=== PATIENT | female | born 1990 | race Caucasian/White ===

== ENCOUNTER 2018-04-13 13:50 | Emergency (ER) | payer OTHER ==
[~2018-04-13] VITALS: Ht 170.2 cm; Wt 72.6 kg
[~2018-04-13 13:50] MED LIST: AMOXICILLIN 50500 MG PO; CIPRO500 MG PO; FERRO-TIME325 MG PO; GENTAMICIN SU3 MG/ML OPHTHALMIC; IBUPROFEN 400400 M1 PO; IBUPROFEN 600600 M1 PO; KEFLEX500 MG PO; LIDOCAINE VISC100 ML SWISH&SPIT; ULTRAM 50MG TAB50 MG PO
[2018-04-13] MEDS ORDERED: BACTRIM DS TAB1 EACH PO (14:25)
[2018-04-13] MEDS ORDERED: KEFLEX500 M1 PO (14:25)
[2018-04-13 14:43] VITALS: BP 105/64
== END 2018-04-13 14:40 | disposition home or self-care (01) ==
LOC: M.ERS 13:50
DX: L03.114 Cellulitis of left upper limb (principal); F17.210 Nicotine dependence, cigarettes, uncomplicated

== ENCOUNTER 2018-06-28 07:58 | Emergency (ER) | payer OTHER ==
[~2018-06-28] VITALS: Ht 172.7 cm; Wt 72.6 kg
[~2018-06-28 07:58] MED LIST changes: +BACTRIM DS TAB1 EACH PO; +KEFLEX500 M1 PO
[2018-06-28 08:07] VITALS: BP 104/60
[2018-06-28] MEDS ORDERED: BACTRIM DS TAB1 EACH PO (08:11)
[2018-06-28] MEDS ORDERED: PREDNISONE 20 M20 M1 PO (08:11)
== END 2018-06-28 08:22 | disposition home or self-care (01) ==
LOC: M.ERS 07:58
DX: S40.862A Insect bite (nonvenomous) of left upper arm, initial encounter (principal); F17.210 Nicotine dependence, cigarettes, uncomplicated; W57.XXXA Bitten or stung by nonvenomous insect and other nonvenomous arthropods, initial encounter; Y93.89 Activity, other specified; Y92.89 Other specified places as the place of occurrence of the external cause; Y99.8 Other external cause status

== ENCOUNTER 2019-08-14 10:38 | Emergency (ER) | payer OTHER ==
[~2019-08-14] VITALS: Ht 172.7 cm; Wt 72.6 kg
[~2019-08-14 10:38] MED LIST changes: +PREDNISONE 20 M20 M1 PO
[2019-08-14 11:07] LABS: ABSOLUTE BASOPHILS 0.1 thou/uL (0.0-0.2); ABSOLUTE EOSINOPHILS 0.5 thou/uL (0.0-0.7); ABSOLUTE LYMPHOCYTES 1.3 thou/uL (0.8-5.3); ABSOLUTE MONOCYTES 0.4 thou/uL (0.0-1.2); ABSOLUTE NEUTROPHILS 5.6 thou/uL (1.6-8.1); BASOPHILS 0.9 %; EOSINOPHILS 6.7 %; HEMATOCRIT 36.7 % (37.0-47.0); HEMOGLOBIN 12.5 gm/dL (12.0-15.0); LYMPHOCYTES 16.9 %; MCH 29.3 pg (26.0-34.0); MCHC 34.1 g/dL (28.0-37.0); MCV 85.9 fL (80.0-100.0); MONOCYTES 5.5 %; MPV 9.7 fl. (7.2-11.1); NUCLEATED RBCS 0 /100WBC; PLATELET COUNT* 256 thou/uL (150-400); RBC 4.27 mil/uL (4.20-5.00); WBC 7.9 thou/uL (4.0-11.0)
[2019-08-14] MEDS ORDERED: ONDANSETRON HCL4 M2 PO (11:14)
[2019-08-14 11:17] LABS: URINE BILIRUBIN NEGATIVE (Negative); URINE BLOOD NEGATIVE (Negative); URINE CLARITY CLEAR; URINE COLOR YELLOW; URINE GLUCOSE-RANDOM NEGATIVE (Negative); URINE KETONES NEGATIVE (Negative); URINE LEUKOCYTES-REFLEX NEGATIVE (Negative); URINE NITRITE-REFLEX NEGATIVE (Negative); URINE PROTEIN NEGATIVE (Negative); URINE SPECIFIC GRAVITY >= 1.030 (1.005-1.030); URINE UROBILINOGEN 0.2 E.U./dl (0.2-1.0)
[2019-08-14 11:18] LABS: CALCIUM 8.3 mg/dL (8.5-10.1); CREATININE 0.7 mg/dL (0.6-1.3); POTASSIUM 3.7 mmol/L (3.5-5.1)
[2019-08-14 11:31] LABS: ALBUMIN 3.6 g/dL (3.4-5.0); TOTAL BILIRUBIN 0.2 mg/dL (<0.1-1.0); TOTAL PROTEIN 7.5 g/dL (6.4-8.2)
[2019-08-14 12:07] VITALS: BP 114/55
== END 2019-08-14 12:10 | disposition home or self-care (01) ==
LOC: M.ERS 10:38
PROVIDERS: Nurse Practitioner Family
DX: R11.2 Nausea with vomiting, unspecified (principal); F17.210 Nicotine dependence, cigarettes, uncomplicated

== ENCOUNTER 2019-12-26 02:51 | Emergency (ER) | payer OTHER ==
[~2019-12-26 02:51] MED LIST changes: +ONDANSETRON HCL4 M2 PO
== END 2019-12-26 03:00 | disposition left against medical advice (07) ==
LOC: M.ERS 02:51
DX: Z53.21 Procedure and treatment not carried out due to patient leaving prior to being seen by health care provider (principal)

== ENCOUNTER 2020-05-07 10:43 | Emergency (ER) | payer OTHER ==
[~2020-05-07] VITALS: Ht 170.2 cm; Wt 74.4 kg
[2020-05-07] MEDS ORDERED: PROAIR HFA8.5 GM INH (10:58)
[2020-05-07 11:45] LABS: INFLUENZA A ANTIGEN Negative (Negative); INFLUENZA B ANTIGEN Negative (Negative)
[2020-05-07] MEDS ORDERED: PREDNISONE 20 M20 M1 PO (12:20)
[2020-05-07] MEDS ORDERED: ZPAK PO (12:20)
[2020-05-07] MEDS ORDERED: VENTOLIN HFA 1818 GM INH (12:43)
[2020-05-07 12:58] VITALS: BP 95/57
== END 2020-05-07 12:59 | disposition home or self-care (01) ==
LOC: M.ERS 10:43
PROVIDERS: Family Medicine
DX: J40 Bronchitis, not specified as acute or chronic (principal); Z20.828 Contact with and (suspected) exposure to other viral communicable diseases; J44.9 Chronic obstructive pulmonary disease, unspecified; F17.210 Nicotine dependence, cigarettes, uncomplicated

== ENCOUNTER 2020-10-17 20:45 | Emergency (ER) | payer OTHER ==
[~2020-10-17] VITALS: Ht 170.2 cm; Wt 72.6 kg
[~2020-10-17 20:45] MED LIST changes: +PROAIR HFA8.5 GM INH; +VENTOLIN HFA 1818 GM INH; +ZPAK PO
[2020-10-17 21:12] LABS: URINE BILIRUBIN NEGATIVE (Negative); URINE BLOOD NEGATIVE (Negative); URINE CLARITY CLEAR; URINE COLOR YELLOW; URINE GLUCOSE-RANDOM NEGATIVE (Negative); URINE KETONES NEGATIVE (Negative); URINE LEUKOCYTES-REFLEX 1+ (Negative); URINE NITRITE-REFLEX NEGATIVE (Negative); URINE PROTEIN NEGATIVE (Negative); URINE UROBILINOGEN 0.2 E.U./dl (0.2-1.0)
[2020-10-17 21:17] LABS: BACTERIA-REFLEX 1-9 Few /HPF (None Seen); MUCUS None Seen strn/LPF (None Seen); SQUAMOUS >10 Many /LPF (0-3); URINE WBC-REFLEX 6-15 Few /HPF (0-5)
[2020-10-17 21:18] LABS: CRYSTALS None Seen /LPF (None Seen); WBC CLUMPS Few (None Seen)
[2020-10-17 21:19] LABS: CASTS None Seen /LPF (None Seen); URINE RBC None Seen /HPF (0-2)
[2020-10-17 21:45] LABS: ABSOLUTE BASOPHILS 0.1 thou/uL (0.0-0.2); ABSOLUTE EOSINOPHILS 0.5 thou/uL (0.0-0.7); ABSOLUTE LYMPHOCYTES 1.8 thou/uL (0.8-5.3); ABSOLUTE MONOCYTES 0.6 thou/uL (0.0-1.2); ABSOLUTE NEUTROPHILS 6.4 thou/uL (1.6-8.1); BASOPHILS 0.6 %; EOSINOPHILS 5.2 %; HEMATOCRIT 38.2 % (37.0-47.0); HEMOGLOBIN 12.7 gm/dL (12.0-15.0); LYMPHOCYTES 18.9 %; MCH 28.9 pg (26.0-34.0); MCHC 33.2 g/dL (28.0-37.0); MCV 87.3 fL (80.0-100.0); MONOCYTES 6.6 %; MPV 9.9 fl. (7.2-11.1); NUCLEATED RBCS 0 /100WBC; PLATELET COUNT* 216 thou/uL (150-400); POLYS 68.7 %; RBC 4.38 mil/uL (4.20-5.00); RDW-CV 13.3 % (10.5-14.5); WBC 9.3 thou/uL (4.0-11.0)
[2020-10-17 21:50] LABS: CALCIUM 8.2 mg/dL (8.5-10.1); CREATININE 0.9 mg/dL (0.6-1.3); POTASSIUM 3.9 mmol/L (3.5-5.1)
[2020-10-17 21:54] LABS: ALBUMIN 3.6 g/dL (3.4-5.0); TOTAL BILIRUBIN 0.3 mg/dL (<0.1-1.0); TOTAL PROTEIN 7.5 g/dL (6.4-8.2)
[2020-10-17] MEDS ORDERED: ZOFRAN ODT4 MG PO (22:14)
[2020-10-17] MEDS ORDERED: BENTYL 10 MG CA10 M1 PO (22:14)
[2020-10-17] MEDS ORDERED: IBUPROFEN 800800 M1 PO (22:14)
[2020-10-17] MEDS ORDERED: CEPHALEXIN500 MG PO (22:15)
[2020-10-18 01:23] VITALS: BP 104/65
== END 2020-10-18 01:23 | disposition home or self-care (01) ==
LOC: M.ERS 20:45
PROVIDERS: Nurse Practitioner Family
DX: N39.0 Urinary tract infection, site not specified (principal); R10.11 Right upper quadrant pain; J44.9 Chronic obstructive pulmonary disease, unspecified; F31.9 Bipolar disorder, unspecified; F17.210 Nicotine dependence, cigarettes, uncomplicated

== ENCOUNTER 2020-12-04 05:45 | Emergency (ER) | payer OTHER ==
[~2020-12-04] VITALS: Ht 170.2 cm; Wt 73.5 kg
[~2020-12-04 05:45] MED LIST changes: +BENTYL 10 MG CA10 M1 PO; +CEPHALEXIN500 MG PO; +IBUPROFEN 800800 M1 PO; +ZOFRAN ODT4 MG PO
[2020-12-04 06:17] LABS: ABSOLUTE BASOPHILS 0.1 thou/uL (0.0-0.2); ABSOLUTE EOSINOPHILS 0.5 thou/uL (0.0-0.7); ABSOLUTE LYMPHOCYTES 2.3 thou/uL (0.8-5.3); ABSOLUTE MONOCYTES 0.7 thou/uL (0.0-1.2); ABSOLUTE NEUTROPHILS 6.4 thou/uL (1.6-8.1); BASOPHILS 0.7 %; EOSINOPHILS 5.5 %; HEMATOCRIT 39.3 % (37.0-47.0); HEMOGLOBIN 13.1 gm/dL (12.0-15.0); LYMPHOCYTES 22.5 %; MCH 28.8 pg (26.0-34.0); MCHC 33.4 g/dL (28.0-37.0); MCV 86.2 fL (80.0-100.0); MONOCYTES 7.4 %; MPV 8.8 fl. (7.2-11.1); NUCLEATED RBCS 0 /100WBC; PLATELET COUNT* 292 thou/uL (150-400); POLYS 63.9 %; RBC 4.55 mil/uL (4.20-5.00); RDW-CV 12.9 % (10.5-14.5)
[2020-12-04 06:26] LABS: CALCIUM 8.7 mg/dL (8.5-10.1); CREATININE 0.7 mg/dL (0.6-1.3); POTASSIUM 3.6 mmol/L (3.5-5.1)
[2020-12-04 06:30] LABS: TOTAL BILIRUBIN 0.2 mg/dL (<0.1-1.0); TOTAL PROTEIN 7.9 g/dL (6.4-8.2)
[2020-12-04 06:43] LABS: AMP/METHAMP POSITIVE (Negative); BARBITURATES Negative (Negative); BENZODIAZEPINES Negative (Negative); COCAINE Negative (Negative); METHADONE Negative (Negative); OPIATES Negative (Negative); PCP Negative (Negative); THC POSITIVE (Negative)
[2020-12-04 06:53] LABS: URINE BILIRUBIN NEGATIVE (Negative); URINE BLOOD NEGATIVE (Negative); URINE CLARITY CLEAR; URINE COLOR YELLOW; URINE GLUCOSE-RANDOM NEGATIVE (Negative); URINE KETONES NEGATIVE (Negative); URINE LEUKOCYTES-REFLEX NEGATIVE (Negative); URINE NITRITE-REFLEX POSITIVE (Negative); URINE PROTEIN NEGATIVE (Negative); URINE SPECIFIC GRAVITY >= 1.030 (1.005-1.030); URINE UROBILINOGEN 0.2 E.U./dl (0.2-1.0)
[2020-12-04 06:57] LABS: CASTS None Seen /LPF (None Seen); CRYSTALS None Seen /LPF (None Seen); SQUAMOUS 0-3 Few /LPF (0-3); URINE RBC 0-2 Rare /HPF (0-2); URINE WBC-REFLEX 6-15 Few /HPF (0-5)
[2020-12-04] MEDS ORDERED: FLAGYL500 M1 PO (09:06)
[2020-12-04] MEDS ORDERED: AUGMENTIN 875-1 EACH PO (09:06)
[2020-12-04] MEDS ORDERED: COLACE 100 MG100 MG PO (09:06)
[2020-12-04 09:46] VITALS: BP 110/68
== END 2020-12-04 09:47 | disposition home or self-care (01) ==
LOC: M.ERS 05:45
PROVIDERS: Personal Emergency Response Attendant
DX: K80.80 Other cholelithiasis without obstruction (principal); Z11.3 Encounter for screening for infections with a predominantly sexual mode of transmission; F17.210 Nicotine dependence, cigarettes, uncomplicated; J44.9 Chronic obstructive pulmonary disease, unspecified; R51.9 Headache, unspecified

== ENCOUNTER 2021-03-10 09:27 | Emergency (ER) | payer OTHER ==
[~2021-03-10] VITALS: Ht 170.2 cm; Wt 72.1 kg
[~2021-03-10 09:27] MED LIST changes: +AUGMENTIN 875-1 EACH PO; +COLACE 100 MG100 MG PO; +FLAGYL500 M1 PO
[2021-03-10 09:35] VITALS: BP 103/57
[2021-03-10] MEDS ORDERED: HYDROCODON-ACE1 EAC7 PO (09:47)
[2021-03-10] MEDS ORDERED: FLEXERIL PO (09:47)
[2021-03-11] MEDS ORDERED: IBUPROFEN 800800 M1 PO (21:47)
[2021-03-11] MEDS ORDERED: MEDROLDOSEPACK PO (21:47)
== END 2021-03-10 09:48 | disposition home or self-care (01) ==
LOC: M.ERS 09:27
DX: S46.912A Strain of unspecified muscle, fascia and tendon at shoulder and upper arm level, left arm, initial encounter (principal); J44.9 Chronic obstructive pulmonary disease, unspecified; F31.9 Bipolar disorder, unspecified; F17.210 Nicotine dependence, cigarettes, uncomplicated; X58.XXXA Exposure to other specified factors, initial encounter; Y93.89 Activity, other specified; Y92.89 Other specified places as the place of occurrence of the external cause; Y99.8 Other external cause status

== ENCOUNTER 2021-03-11 20:35 | Emergency (ER) | payer OTHER ==
[~2021-03-11] VITALS: Ht 172.7 cm; Wt 70.3 kg
[~2021-03-11 20:35] MED LIST changes: +FLEXERIL PO; +HYDROCODON-ACE1 EAC7 PO
[2021-03-11 20:46] VITALS: BP 123/81
[2021-03-11] MEDS ORDERED: MEDROLDOSEPACK PO (21:47)
[2021-03-11] MEDS ORDERED: IBUPROFEN 800800 M1 PO (21:47)
== END 2021-03-11 21:56 | disposition home or self-care (01) ==
LOC: M.ERS 20:35
DX: M25.512 Pain in left shoulder (principal); J44.9 Chronic obstructive pulmonary disease, unspecified; F31.9 Bipolar disorder, unspecified; F17.210 Nicotine dependence, cigarettes, uncomplicated; Z79.899 Other long term (current) drug therapy

== ENCOUNTER 2021-04-06 09:17 | Emergency (ER) | payer OTHER ==
[~2021-04-06] VITALS: Ht 170.2 cm; Wt 71.7 kg
[~2021-04-06 09:17] MED LIST changes: +MEDROLDOSEPACK PO
[2021-04-06 10:31] VITALS: BP 115/70
== END 2021-04-06 10:33 | disposition home or self-care (01) ==
LOC: M.ERS 09:17
DX: U07.1 COVID-19 (principal); J44.9 Chronic obstructive pulmonary disease, unspecified; F17.210 Nicotine dependence, cigarettes, uncomplicated; R21 Rash and other nonspecific skin eruption

== ENCOUNTER 2021-04-25 11:07 | Emergency (ER) | payer OTHER ==
[~2021-04-25] VITALS: Ht 170.2 cm; Wt 68.0 kg
[2021-04-25] MEDS ORDERED: DOXYCYCLINE 10100 MG PO (14:33)
[2021-04-25] MEDS ORDERED: VENTOLIN HFA 1818 GM INH (14:33)
[2021-04-25 14:43] VITALS: BP 123/79
== END 2021-04-25 14:44 | disposition home or self-care (01) ==
LOC: M.ERS 11:07
DX: J06.9 Acute upper respiratory infection, unspecified (principal); Z20.822 Contact with and (suspected) exposure to COVID-19; R21 Rash and other nonspecific skin eruption; J44.9 Chronic obstructive pulmonary disease, unspecified; F31.9 Bipolar disorder, unspecified; H92.02 Otalgia, left ear; F17.210 Nicotine dependence, cigarettes, uncomplicated

== ENCOUNTER 2021-05-31 21:18 | Emergency (ER) | payer OTHER ==
[~2021-05-31] VITALS: Ht 175.3 cm; Wt 64.9 kg
[~2021-05-31 21:18] MED LIST changes: +DOXYCYCLINE 10100 MG PO
[2021-05-31 21:30] LABS: URINE BILIRUBIN NEGATIVE (Negative); URINE BLOOD NEGATIVE (Negative); URINE CLARITY CLEAR; URINE COLOR YELLOW; URINE GLUCOSE-RANDOM NEGATIVE (Negative); URINE KETONES NEGATIVE (Negative); URINE LEUKOCYTES-REFLEX NEGATIVE (Negative); URINE NITRITE-REFLEX NEGATIVE (Negative); URINE PROTEIN NEGATIVE (Negative); URINE UROBILINOGEN 0.2 E.U./dl (0.2-1.0)
[2021-05-31 21:41] LABS: AMP/METHAMP POSITIVE (Negative); BARBITURATES Negative (Negative); BENZODIAZEPINES Negative (Negative); COCAINE Negative (Negative); METHADONE Negative (Negative); OPIATES Negative (Negative); PCP Negative (Negative); THC Negative (Negative)
[2021-05-31 22:02] LABS: ABSOLUTE EOSINOPHILS 0.1 thou/uL (0.0-0.7); ABSOLUTE LYMPHOCYTES 0.9 thou/uL (0.8-5.3); ABSOLUTE MONOCYTES 0.4 thou/uL (0.0-1.2); ABSOLUTE NEUTROPHILS 3.3 thou/uL (1.6-8.1); BASOPHILS 0.8 %; EOSINOPHILS 2.7 %; HEMATOCRIT 33.4 % (37.0-47.0); HEMOGLOBIN 10.9 gm/dL (12.0-15.0); LYMPHOCYTES 19.7 %; MCH 26.9 pg (26.0-34.0); MCHC 32.8 g/dL (28.0-37.0); MCV 82.2 fL (80.0-100.0); MONOCYTES 8.8 %; MPV 8.5 fl. (7.2-11.1); NUCLEATED RBCS 0 /100WBC; PLATELET COUNT* 262 thou/uL (150-400); RBC 4.07 mil/uL (4.20-5.00); RDW-CV 15.8 % (10.5-14.5); WBC 4.8 thou/uL (4.0-11.0)
[2021-05-31 22:11] LABS: CALCIUM 8.4 mg/dL (8.5-10.1); CREATININE 0.7 mg/dL (0.6-1.3); POTASSIUM 4.1 mmol/L (3.5-5.1)
[2021-05-31 22:16] LABS: ALBUMIN 3.3 g/dL (3.4-5.0); TOTAL BILIRUBIN 0.3 mg/dL (<0.1-1.0); TOTAL PROTEIN 8.1 g/dL (6.4-8.2)
[2021-05-31] MEDS ORDERED: REGLAN 10 MG TA10 MG PO (22:31)
[2021-05-31] MEDS ORDERED: TRAMADOL 50 MG50 MG PO (22:31)
[2021-05-31 23:20] VITALS: BP 104/63
== END 2021-05-31 23:21 | disposition home or self-care (01) ==
LOC: M.ERS 21:18
PROVIDERS: Emergency Medicine
DX: K80.50 Calculus of bile duct without cholangitis or cholecystitis without obstruction (principal); J44.9 Chronic obstructive pulmonary disease, unspecified; F31.9 Bipolar disorder, unspecified; F17.210 Nicotine dependence, cigarettes, uncomplicated

== ENCOUNTER 2021-07-01 15:48 | Emergency (ER) | payer OTHER ==
[~2021-07-01] VITALS: Ht 170.2 cm; Wt 70.3 kg
[~2021-07-01 15:48] MED LIST changes: +REGLAN 10 MG TA10 MG PO; +TRAMADOL 50 MG50 MG PO
[2021-07-01 15:52] VITALS: BP 126/81
[2021-07-01 17:02] LABS: URINE BILIRUBIN NEGATIVE (Negative); URINE BLOOD 3+ (Negative); URINE CLARITY CLEAR; URINE COLOR YELLOW; URINE GLUCOSE-RANDOM NEGATIVE (Negative); URINE KETONES NEGATIVE (Negative); URINE LEUKOCYTES-REFLEX NEGATIVE (Negative); URINE NITRITE-REFLEX NEGATIVE (Negative); URINE PROTEIN NEGATIVE (Negative); URINE UROBILINOGEN 0.2 E.U./dl (0.2-1.0)
[2021-07-01 17:05] LABS: CASTS None Seen /LPF (None Seen); CRYSTALS None Seen /LPF (None Seen); SQUAMOUS 0-3 Few /LPF (0-3); URINE RBC 3-10 Few /HPF (0-2); URINE WBC-REFLEX None Seen /HPF (0-5)
[2021-07-01] MEDS ORDERED: RID COMPLETE 11 EACH TOP (17:26)
== END 2021-07-01 17:48 | disposition home or self-care (01) ==
LOC: M.ERS 15:48
PROVIDERS: Physician Assistant
DX: B85.2 Pediculosis, unspecified (principal); R21 Rash and other nonspecific skin eruption; J44.9 Chronic obstructive pulmonary disease, unspecified; F32.9 Major depressive disorder, single episode, unspecified; F17.210 Nicotine dependence, cigarettes, uncomplicated; Z20.2 Contact with and (suspected) exposure to infections with a predominantly sexual mode of transmission

== ENCOUNTER 2021-08-30 01:50 | Emergency (ER) | payer OTHER, MEDICAID ==
[~2021-08-30] VITALS: Ht 170.2 cm; Wt 59.0 kg
[~2021-08-30 01:50] MED LIST changes: +RID COMPLETE 11 EACH TOP
[2021-08-30 02:25] LABS: URINE BILIRUBIN NEGATIVE (Negative); URINE BLOOD 2+ (Negative); URINE CLARITY SL HAZY; URINE COLOR YELLOW; URINE GLUCOSE-RANDOM NEGATIVE (Negative); URINE KETONES NEGATIVE (Negative); URINE LEUKOCYTES-REFLEX NEGATIVE (Negative); URINE NITRITE-REFLEX NEGATIVE (Negative); URINE PROTEIN NEGATIVE (Negative); URINE SPECIFIC GRAVITY >= 1.030 (1.005-1.030); URINE UROBILINOGEN 0.2 E.U./dl (0.2-1.0)
[2021-08-30 02:34] LABS: BACTERIA-REFLEX >30 Many /HPF (None Seen); CASTS None Seen /LPF (None Seen); CRYSTALS None Seen /LPF (None Seen); MUCUS 4-6 Moderate strn/LPF (None Seen); SQUAMOUS 0-3 Few /LPF (0-3); TRANSITIONAL EPITHEL CELL 0-3 Few /LPF (None Seen); URINE WBC-REFLEX 0-5 Rare /HPF (0-5)
[2021-08-30] MEDS ORDERED: METRONIDAZOLE500 M4 PO (03:01)
[2021-08-30 03:05] VITALS: BP 124/75
== END 2021-08-30 03:05 | disposition home or self-care (01) ==
LOC: M.ERS 01:50
PROVIDERS: Personal Emergency Response Attendant
DX: M79.5 Residual foreign body in soft tissue (principal); N76.0 Acute vaginitis; B96.89 Other specified bacterial agents as the cause of diseases classified elsewhere; J44.9 Chronic obstructive pulmonary disease, unspecified; F31.9 Bipolar disorder, unspecified; F17.210 Nicotine dependence, cigarettes, uncomplicated